=== PATIENT | male | born 1950 | race Caucasian/White ===

== ENCOUNTER 2019-11-10 07:47 | Day surgery (SDC) | payer OTHER ==
[~2019-11-10] VITALS: Ht 175.3 cm; Wt 110.9 kg
[~2019-11-10 07:47] MED LIST: ALLO100; ASPI81EC; BENAML10/2; CETI10 PO; HYDCHL25; MECL25 PO; MULVITA; NEBI5 PO; OMEP20ER PO; POTCHL10ER PO; Saw Palmetto80 MG; VICODIN 5-3001 EACH PO
[2019-11-10] MEDS ORDERED: AMLO5 PO (08:22)
[2019-11-10] MEDS ORDERED: DIAZ10 (08:24)
[2019-11-10] MEDS ORDERED: Hytrin2 MG PO (08:25)
--- NOTE | 2019-11-10 09:06 | NUR ---
11/10/19 0906 Randolph Purcell History, Chart, Medications and Allergies reviewed before start of procedure.MONITOR INTACT WITH CONTINUOUS PULSE OXIMETRY AND INTERMITTENT BP.3-LEAD EKG REVIEWED WITH PHYSICIAN PRIOR TO START OF PROCEDURE.O2 VIA N/C INTACT THROUGHOUT SEDATION/PROCEDURE. PATIENT DETERMINED TO BE ASA APPROPRIATE FOR PROPOFOL SEDATION PRIOR TO START OF PROCEDURE BY DR. ELLIS.
--- NOTE | 2019-11-10 09:15 | NUR ---
Ambulatory in Day SurgeryPatient states colon prep results clear. History, Chart, Medications and Allergies reviewed before start of procedure.Lungs clear T/O to Auscultation. Patient confirms NPO status and agrees with scheduled surgery. Patient states colon prep results clear. Pre-Op teaching done. Pt verbalizes understanding. Patient States Post-Procedure ride home has been arranged. PATIENT WAS SHOWING POSSIBLE A-FIB, AN EKG WAS ORDERED AND PREFORMED.
== END 2019-11-10 10:02 | disposition home or self-care (01) ==
LOC: ORSCMMR 07:47 → ORD 09:00 → ORSCMMR 10:02
PROVIDERS: Internal Medicine Gastroenterology
PROC: 0DJD8ZZ Inspection of Lower Intestinal Tract, Via Natural or Artificial Opening Endoscopic (ICD-10-PCS; principal; 2019-11-10 09:00)
DX: Z12.11 Encounter for screening for malignant neoplasm of colon (principal); Z86.010 Personal history of colon polyps; I10 Essential (primary) hypertension; K21.9 Gastro-esophageal reflux disease without esophagitis; E66.9 Obesity, unspecified; Z68.36 Body mass index [BMI] 36.0-36.9, adult; Z79.899 Other long term (current) drug therapy
CPT/HCPCS: 93005; 93010; J2704; J7120

== ENCOUNTER 2019-12-03 14:37 | Emergency (ER) | payer OTHER ==
[~2019-12-03] VITALS: Ht 177.8 cm; Wt 102.1 kg
[~2019-12-03 14:37] MED LIST changes: +AMLO5 PO; +DIAZ10; +Hytrin2 MG PO
[2019-12-03 15:38] LABS: BASOPHILS ABSOLUTE AUTO 0.04 K/mm3 (0.00-0.23); BASOPHILS PERCENT AUTO 0 % (0-2); EOSINOPHILS ABSOLUTE AUTO 0.15 K/mm3 (0.00-0.68); EOSINOPHILS PERCENT AUTO 2 % (0-6); Hematocrit 38.6 % (37.0-53.0); Hemoglobin 13.2 g/dL (13.5-17.5); IMMATURE GRAN ABSOLUTE AUTO 0.03 K/mm3 (0.00-0.10); IMMATURE GRAN PERCENT AUTO 0 % (0-1); LYMPHOCYTES ABSOLUTE AUTO 1.67 K/mm3 (0.84-5.20); LYMPHOCYTES PERCENT AUTO 17 % (21-46); MONOCYTES ABSOLUTE AUTO 0.98 K/mm3 (0.16-1.47); MONOCYTES PERCENT AUTO 10 % (4-13); Mean Corpuscular HGB Conc 34.2 g/dL (31.5-36.5); Mean Corpuscular Volume 100 fL (80-100); Mean Platelet Volume 9.3 fL (9.1-12.4); NEUTROPHILS ABSOLUTE AUTO 7.04 K/mm3 (1.96-9.15); NEUTROPHILS PERCENT AUTO 71 % (41-73); Platelet Count 298 K/mm3 (150-400); RDW Coefficient Variation 13.8 % (11.7-14.2); RDW Standard Deviation 49.7 fL (35.1-46.3); Red Blood Cell Count 3.88 M/mm3 (4.30-5.90); White Blood Cell Count 9.91 K/mm3 (4.00-11.30)
[2019-12-03 15:54] LABS: Alanine Aminotransfer (ALT/SGP 22 U/L (12-78); Albumin, Blood 3.4 g/dL (3.4-5.0); Alk Phos 72 U/L (50-136); Anion Gap 8 mmol/L (6-16); Aspartate Aminotrans (AST/SGOT 20 U/L (12-37); Bilirubin, Total 0.6 mg/dL (0.1-1.0); Blood Urea Nitrogen 7 mg/dL (8-24); Bun/Creatinine Ratio 7.2 (12.0-20.0); CO2, Blood 25 mmol/L (21-32); Calcium, Blood 8.6 mg/dL (8.5-10.1); Chloride, Blood 102 mmol/L (98-108); Creatinine, Blood 0.97 mg/dL (0.60-1.20); Globulin, Blood 3.4 g/dL (2.2-4.0); Glomerular Filtration Rate >60 (60-); Glucose, Blood 95 mg/dL (70-99); Potassium, Blood 4.3 mmol/L (3.5-5.5); Sodium, Blood 135 mmol/L (136-145); Total Protein, Blood 6.8 g/dL (6.4-8.2)
[2019-12-03 15:55] LABS: Troponin I <0.015 ng/mL (0.000-0.040)
[2019-12-03] MEDS ORDERED: Amlodipine Bes2.5 MG PO (16:29)
[2019-12-03] MEDS ORDERED: ALLO300 PO (16:29)
[2019-12-03] MEDS ORDERED: OMEP20ER PO (16:29)
[2019-12-03] MEDS ORDERED: DIAZ10 PO (16:30)
[2019-12-03] MEDS ORDERED: Depo-Testos200 MG/ML IM (16:30)
[2019-12-03] MEDS ORDERED: MULTIVITAMINS1 EAC3 PO (16:31)
[2019-12-03] MEDS ORDERED: Saw Palmetto450 MG PO (16:32)
[2019-12-03] MEDS ORDERED: Hytrin2 MG PO (16:32)
[2019-12-03] MEDS ORDERED: HYDR1TAB94 PO (16:32)
[2019-12-03] MEDS ORDERED: Azor 5-40 MG T1 EACH PO (16:33)
[2019-12-03] MEDS ORDERED: ELIQUIS2.5 MG PO (16:33)
[2019-12-03] MEDS ORDERED: Zithromax250 MG PO (17:08)
== END 2019-12-03 17:24 | disposition home or self-care (01) ==
LOC: ER 14:37
PROVIDERS: Physician Assistant
DX: J18.9 Pneumonia, unspecified organism (principal); I48.92 Unspecified atrial flutter; I10 Essential (primary) hypertension; K21.9 Gastro-esophageal reflux disease without esophagitis; Z79.899 Other long term (current) drug therapy
CPT/HCPCS: 36415; 71046; 80053; 83880; 84484; 85025; 93005; 93010; 99284-25

== ENCOUNTER 2019-12-21 10:03 | Day surgery (SDC) | payer OTHER ==
[~2019-12-21] VITALS: Ht 177.8 cm; Wt 109.0 kg
[~2019-12-21 10:03] MED LIST changes: +ALLO300 PO; +Amlodipine Bes2.5 MG PO; +Azor 5-40 MG T1 EACH PO; +DIAZ10 PO; +Depo-Testos200 MG/ML IM; +ELIQUIS2.5 MG PO; +HYDR1TAB94 PO; +MULTIVITAMINS1 EAC3 PO; +Saw Palmetto450 MG PO; +Zithromax250 MG PO
[2019-12-21 10:42] LABS: BASOPHILS ABSOLUTE AUTO 0.05 K/mm3 (0.00-0.23); BASOPHILS PERCENT AUTO 1 % (0-2); EOSINOPHILS ABSOLUTE AUTO 0.17 K/mm3 (0.00-0.68); EOSINOPHILS PERCENT AUTO 2 % (0-6); Hematocrit 40.3 % (37.0-53.0); Hemoglobin 13.9 g/dL (13.5-17.5); IMMATURE GRAN ABSOLUTE AUTO 0.02 K/mm3 (0.00-0.10); IMMATURE GRAN PERCENT AUTO 0 % (0-1); LYMPHOCYTES ABSOLUTE AUTO 1.67 K/mm3 (0.84-5.20); LYMPHOCYTES PERCENT AUTO 22 % (21-46); MONOCYTES ABSOLUTE AUTO 0.96 K/mm3 (0.16-1.47); MONOCYTES PERCENT AUTO 13 % (4-13); Mean Corpuscular HGB 32.9 pg (26.0-34.0); Mean Corpuscular HGB Conc 34.5 g/dL (31.5-36.5); Mean Platelet Volume 8.8 fL (9.1-12.4); NEUTROPHILS ABSOLUTE AUTO 4.77 K/mm3 (1.96-9.15); NEUTROPHILS PERCENT AUTO 62 % (41-73); Platelet Count 323 K/mm3 (150-400); RDW Coefficient Variation 12.8 % (11.7-14.2); RDW Standard Deviation 44.6 fL (35.1-46.3); Red Blood Cell Count 4.22 M/mm3 (4.30-5.90); White Blood Cell Count 7.64 K/mm3 (4.00-11.30)
[2019-12-21 10:47] LABS: Mean Corpuscular Volume 96 fL (80-100)
[2019-12-21 10:55] LABS: International Normalized Ratio 1.04; Prothrombin Time Results 11.1 Sec (9.7-11.5)
[2019-12-21 11:24] LABS: Anion Gap 6 mmol/L (6-16); Blood Urea Nitrogen 14 mg/dL (8-24); CO2, Blood 27 mmol/L (21-32); Calcium, Blood 8.5 mg/dL (8.5-10.1); Chloride, Blood 91 mmol/L (98-108); Glomerular Filtration Rate >60 (60-); Glucose, Blood 102 mg/dL (70-99); Sodium, Blood 124 mmol/L (136-145)
[2019-12-21] MEDS ORDERED: METO25ER PO (12:35)
--- NOTE | 2019-12-21 13:01 | NUR ---
DISCHARGE GONE OVER WITH PT AND WITH , BOTH VERBALIZE UNDERSTANDING. SALINE LOCK OUT WITH CATHETER INTACT. PT ALERT AND TALKING WITH STAFF UPON DISCHARGE. PT TO PRIVATE VEHICLE PER W/C WITH ASSIST OF 1 STAFF.
== END 2019-12-21 23:13 | disposition home or self-care (01) ==
LOC: MHTC 10:03
DX: I48.92 Unspecified atrial flutter (principal); I08.1 Rheumatic disorders of both mitral and tricuspid valves; M19.90 Unspecified osteoarthritis, unspecified site; Z79.899 Other long term (current) drug therapy; Z79.01 Long term (current) use of anticoagulants; Z91.030 Bee allergy status; Z88.8 Allergy status to other drugs, medicaments and biological substances
CPT/HCPCS: 36415; 80048; 85025; 85610; 92960; 93005; 93010; 93312; 93325; 99152; 99153; J2250; J2704; J3010; J7030

== ENCOUNTER 2020-01-23 02:23 | Emergency (ER) | payer OTHER ==
[~2020-01-23] VITALS: Ht 177.8 cm; Wt 113.4 kg
[~2020-01-23 02:23] MED LIST changes: +METO25ER PO
[2020-01-23 02:54] LABS: BASOPHILS ABSOLUTE AUTO 0.03 K/mm3 (0.00-0.23); BASOPHILS PERCENT AUTO 0 % (0-2); EOSINOPHILS ABSOLUTE AUTO 0.06 K/mm3 (0.00-0.68); EOSINOPHILS PERCENT AUTO 1 % (0-6); Hematocrit 34.9 % (37.0-53.0); Hemoglobin 11.7 g/dL (13.5-17.5); IMMATURE GRAN ABSOLUTE AUTO 0.07 K/mm3 (0.00-0.10); IMMATURE GRAN PERCENT AUTO 1 % (0-1); LYMPHOCYTES ABSOLUTE AUTO 1.35 K/mm3 (0.84-5.20); LYMPHOCYTES PERCENT AUTO 10 % (21-46); MONOCYTES ABSOLUTE AUTO 0.93 K/mm3 (0.16-1.47); MONOCYTES PERCENT AUTO 7 % (4-13); Mean Corpuscular HGB 32.4 pg (26.0-34.0); Mean Corpuscular HGB Conc 33.5 g/dL (31.5-36.5); Mean Corpuscular Volume 97 fL (80-100); Mean Platelet Volume 9.6 fL (9.1-12.4); NEUTROPHILS ABSOLUTE AUTO 10.49 K/mm3 (1.96-9.15); NEUTROPHILS PERCENT AUTO 81 % (41-73); Platelet Count 390 K/mm3 (150-400); RDW Standard Deviation 46.2 fL (35.1-46.3); Red Blood Cell Count 3.61 M/mm3 (4.30-5.90); White Blood Cell Count 12.93 K/mm3 (4.00-11.30)
[2020-01-23] MEDS ORDERED: ALBU90OI INH (02:54)
[2020-01-23] MEDS ORDERED: TORSE20 PO (02:54)
[2020-01-23] MEDS ORDERED: OLME20 PO (02:55)
[2020-01-23] MEDS ORDERED: POTCHL20ER PO (02:55)
[2020-01-23] MEDS ORDERED: TRAM50 PO (02:56)
[2020-01-23 03:14] LABS: Alanine Aminotransfer (ALT/SGP 63 U/L (12-78); Albumin, Blood 2.9 g/dL (3.4-5.0); Albumin/Globulin Ratio 0.7 (0.8-1.8); Alk Phos 135 U/L (50-136); Anion Gap 14 mmol/L (6-16); Aspartate Aminotrans (AST/SGOT 70 U/L (12-37); Bilirubin, Total 2.4 mg/dL (0.1-1.0); Blood Urea Nitrogen 35 mg/dL (8-24); Bun/Creatinine Ratio 11.6 (12.0-20.0); CO2, Blood 20 mmol/L (21-32); Calcium, Blood 9.2 mg/dL (8.5-10.1); Chloride, Blood 92 mmol/L (98-108); Creatinine, Blood 3.03 mg/dL (0.60-1.20); Globulin, Blood 4.4 g/dL (2.2-4.0); Glomerular Filtration Rate 22 (60-); Glucose, Blood 156 mg/dL (70-99); Potassium, Blood 4.7 mmol/L (3.5-5.5); Sodium, Blood 126 mmol/L (136-145); Total Protein, Blood 7.3 g/dL (6.4-8.2); Troponin I <0.015 ng/mL (0.000-0.040)
[2020-01-23 05:02] LABS: International Normalized Ratio 1.2; Prothrombin Time Results 12.7 Sec (9.7-11.5)
== END 2020-01-23 05:45 | disposition short-term general hospital (02) ==
LOC: ER 02:23
PROVIDERS: Emergency Medicine
DX: J90 Pleural effusion, not elsewhere classified (principal); I11.0 Hypertensive heart disease with heart failure; I50.9 Heart failure, unspecified; K21.9 Gastro-esophageal reflux disease without esophagitis; I48.92 Unspecified atrial flutter; N40.0 Benign prostatic hyperplasia without lower urinary tract symptoms; Z79.899 Other long term (current) drug therapy; Z79.01 Long term (current) use of anticoagulants
CPT/HCPCS: 36415; 71045; 71275; 80053; 83880; 84484; 85025; 85610; 85730; 86850; 86900; 86901; 86920; 93005; 93010; 96361-59; 96374-59; 99285-25; J0461; J2405; J7030; P9016; Q9967

== ENCOUNTER → 2020-06-04 | Outpatient (CLI) | payer OTHER ==
[~2020-06-04] MED LIST changes: +ALBU90OI INH; +OLME20 PO; +POTCHL20ER PO; +TORSE20 PO; +TRAM50 PO
== END | disposition home or self-care (01) ==
LOC: PLD 08:15 → LAB SHORT 08:15
DX: C43.61 Malignant melanoma of right upper limb, including shoulder (principal)
CPT/HCPCS: 88305

== ENCOUNTER → 2022-01-30 | Outpatient (CLI) | payer OTHER ==
[~2022-01-30] MED LIST changes: +WARF1 PO
== END | disposition home or self-care (01) ==
LOC: LAB SHORT 07:52 → LAB 07:52 → PLD 07:52
DX: B35.1 Tinea unguium (principal); L60.2 Onychogryphosis
CPT/HCPCS: 88305; 88312

== ENCOUNTER → 2022-07-04 | Outpatient (CLI) | payer OTHER ==
[~2022-07-04] MED LIST changes: +Bumetanide2 MG PO
[2022-07-04 09:36] LABS: BASOPHILS ABSOLUTE AUTO 0.04 K/mm3 (0.00-0.23); BASOPHILS PERCENT AUTO 0 % (0-2); EOSINOPHILS ABSOLUTE AUTO 0.11 K/mm3 (0.00-0.68); EOSINOPHILS PERCENT AUTO 1 % (0-6); Hematocrit 32.2 % (37.0-53.0); IMMATURE GRAN ABSOLUTE AUTO 0.02 K/mm3 (0.00-0.10); IMMATURE GRAN PERCENT AUTO 0 % (0-1); LYMPHOCYTES ABSOLUTE AUTO 1.47 K/mm3 (0.84-5.20); LYMPHOCYTES PERCENT AUTO 16 % (21-46); MONOCYTES ABSOLUTE AUTO 0.92 K/mm3 (0.16-1.47); MONOCYTES PERCENT AUTO 10 % (4-13); Mean Corpuscular HGB 35.3 pg (26.0-34.0); Mean Corpuscular HGB Conc 34.2 g/dL (31.5-36.5); Mean Corpuscular Volume 103 fL (80-100); Mean Platelet Volume 9.4 fL (9.1-12.4); NEUTROPHILS ABSOLUTE AUTO 6.46 K/mm3 (1.96-9.15); NEUTROPHILS PERCENT AUTO 72 % (41-73); Platelet Count 264 K/mm3 (150-400); RDW Coefficient Variation 13.3 % (11.7-14.2); RDW Standard Deviation 50.8 fL (35.1-46.3); RETICULOCYTE COUNT PERCENT 2.68 % (0.50-2.50); Red Blood Cell Count 3.12 M/mm3 (4.30-5.90); White Blood Cell Count 9.02 K/mm3 (4.00-11.30)
[2022-07-04 10:56] LABS: Albumin, Blood 3.3 g/dL (3.4-5.0); Bilirubin, Total 0.9 mg/dL (0.1-1.0); Bun/Creatinine Ratio 9.3 (12.0-20.0); Calcium, Blood 9.2 mg/dL (8.5-10.1); Creatinine, Blood 1.07 mg/dL (0.60-1.20); Globulin, Blood 3.3 g/dL (2.2-4.0); Potassium, Blood 3.8 mmol/L (3.5-5.5); Total Protein, Blood 6.6 g/dL (6.4-8.2)
== END ==
LOC: LAB SHORT 08:35
PROVIDERS: Family Medicine
DX: D53.9 Nutritional anemia, unspecified (principal)
CPT/HCPCS: 36415; 80053; 85025; 85045

== ENCOUNTER 2023-02-02 10:21 | Day surgery (SDC) | payer OTHER ==
[~2023-02-02] VITALS: Ht 175.3 cm; Wt 100.7 kg
[~2023-02-02 10:21] MED LIST changes: +AMLODIPINE-OLM1 EAC2 PO; +ASPI81CH PO; +ELIQUIS5 M2 PO; +SOAANZ20 M1 PO
[2023-02-02] MEDS ORDERED: ASPI81CH (10:41)
[2023-02-02 13:11] VITALS: BP 165/70
== END 2023-02-02 13:00 | disposition home or self-care (01) ==
LOC: ORSCSDS 10:21
PROVIDERS: Student in an Organized Health Care Education/Training Program
PROC: 0D758ZZ Dilation of Esophagus, Via Natural or Artificial Opening Endoscopic (ICD-10-PCS; principal; 2023-02-02 12:00)
PROC: 0DB58ZX Excision of Esophagus, Via Natural or Artificial Opening Endoscopic, Diagnostic (ICD-10-PCS; principal; 2023-02-02 12:00)
PROC: 0DB78ZX Excision of Stomach, Pylorus, Via Natural or Artificial Opening Endoscopic, Diagnostic (ICD-10-PCS; principal; 2023-02-02 12:00)
DX: R13.10 Dysphagia, unspecified (principal); K31.7 Polyp of stomach and duodenum; K29.70 Gastritis, unspecified, without bleeding; R23.4 Changes in skin texture; K21.00 Gastro-esophageal reflux disease with esophagitis, without bleeding; I10 Essential (primary) hypertension; G47.33 Obstructive sleep apnea (adult) (pediatric); I48.91 Unspecified atrial fibrillation; N40.0 Benign prostatic hyperplasia without lower urinary tract symptoms; Z79.01 Long term (current) use of anticoagulants; Z79.899 Other long term (current) drug therapy
CPT/HCPCS: 88305; 88312; 88342; C1726; J2001; J2405; J2704; J7120

== ENCOUNTER 2023-02-03 07:50 | Day surgery (SDC) | payer OTHER ==
[~2023-02-03] VITALS: Ht 172.7 cm; Wt 101.8 kg
[2023-02-03] VITALS (17 sets, daily range): BP systolic 115–174; BP diastolic 67–94
[~2023-02-03 07:50] MED LIST changes: +ASPI81CH
--- NOTE | 2023-02-03 09:15 | NUR ---
PATIENT NOTED TO HAVE BRADYCARDIA. DR ADLER NOTIFIED AND 12 LEAD EKG COMPLETED PER ORDER. PATIENT ADMITS TO SOB WITH ACTIVITY, BUT DENIES CHEST PAIN, DYAPHORESIS, NAUSEA, DIZZINESS OR OTHER SYMPTOMS WITH ACTIVITY. RESULTS SHARED WITH DR ADLER. PLAN TO PROCEED WITH ADMISSION PER DR ADLER.
--- NOTE | 2023-02-03 09:25 | NUR ---
UP TO BR TO VOID.
--- NOTE | 2023-02-03 10:11 | NUR ---
GLASSES AND BILAT HEARING AIDS LABLED AND BROUGHT TO PACU FOR SAFE KEEPING DURING SURGERY.
--- NOTE | 2023-02-03 12:45 | NUR ---
ARRIVAL PATIENT ARRIVED TO UNIT VIA BED. AQUACEL, YESENIA WRAP, AND POLAR PACK TO LEFT KNEE. PATIENT HAD SPINAL FOR SURGERY, DENIES PAIN AT THIS TIME. SENSATION TO L4-L5 AT THIS TIME. VSS ON RA. ORIENTED TO ROOM & CALL LIGHT, IN REACH.
--- NOTE | 2023-02-03 18:29 | NUR ---
SHIFT SUMMARY POD 0 L TKA. NO ACUTE CHANGES SINCE ARRIVAL TO UNIT. AQUACEL & YESENIA WRAP TO LEFT KNEE. POLAR PACK IN PALCE AT REST. PATIENT REPORTS MODERATE PAIN, MEDICATED PER EMAR AND REPORTS TO BE TOLERABLE. WORKED WITH PHYSICAL THERAPY, 1P MOD ASSIST, WILL HAVE ANOTHER SESSION IN AM. UP TO CHAIR FOR DINNER. EATING & DRINKING WELL. HAS YET TO VOID SINCE POST OP, PLAN TO BLADDER SCAN PER PROTOCOL. CALLS APPROPRIATELY, WILL REPORT TO ONCOMING RN AT 1900.
[2023-02-04 04:23] LABS: BASOPHILS ABSOLUTE AUTO 0.01 K/mm3 (0.00-0.23); BASOPHILS PERCENT AUTO 0 % (0-2); EOSINOPHILS PERCENT AUTO 0 % (0-6); Hematocrit 27.8 % (37.0-53.0); Hemoglobin 9.7 g/dL (13.5-17.5); IMMATURE GRAN ABSOLUTE AUTO 0.02 K/mm3 (0.00-0.10); IMMATURE GRAN PERCENT AUTO 0 % (0-1); LYMPHOCYTES ABSOLUTE AUTO 0.79 K/mm3 (0.84-5.20); LYMPHOCYTES PERCENT AUTO 8 % (21-46); MONOCYTES ABSOLUTE AUTO 0.72 K/mm3 (0.16-1.47); MONOCYTES PERCENT AUTO 8 % (4-13); Mean Corpuscular HGB 33.3 pg (26.0-34.0); Mean Corpuscular HGB Conc 34.9 g/dL (31.5-36.5); Mean Corpuscular Volume 96 fL (80-100); NEUTROPHILS ABSOLUTE AUTO 7.81 K/mm3 (1.96-9.15); NEUTROPHILS PERCENT AUTO 84 % (41-73); Platelet Count 164 K/mm3 (150-400); RDW Coefficient Variation 14.2 % (11.7-14.2); RDW Standard Deviation 49.6 fL (35.1-46.3); Red Blood Cell Count 2.91 M/mm3 (4.30-5.90); White Blood Cell Count 9.35 K/mm3 (4.00-11.30)
[2023-02-04 04:37] VITALS: BP 181/87
[2023-02-04 04:38] LABS: Bun/Creatinine Ratio 14.9 (12.0-20.0); Calcium, Blood 8.8 mg/dL (8.5-10.1); Creatinine, Blood 1.14 mg/dL (0.60-1.20); Potassium, Blood 4.6 mmol/L (3.5-5.5)
--- NOTE | 2023-02-04 04:43 | NUR ---
SHIFT SUMMARY POD1 LEFT TKA. DRESSING IS C/D/I. SENSATION AND CIRCULATION REMAINS INTACT. VSS, HTN NOTED THIS AM. PT REMAINS ASYMPTOMATIC, PLAN TO SPEAK WITH SURGEON WHEN HE ROUNDS. PT TAKES BASELINE BP MEDS, BUT THEY ARE BEING SUBBED PER PHARMACY. PT VOIDING W/O DIFFICULTY, ENCOURAGING PO INTAKE TO INCREASE URINE OUTPUT. AMBULATING WITH 1P FWW GT BELT. TOLLERATING PO INTAKE W/O N/V. PLAN FOR PT TO WORK WITH THERAPY AND D/C HOME TODAY. THE PATIENT IS CURRENTLY RESTING, IN NO DISTRESS, CALL LIGHT IN REACH
[2023-02-04 07:14] VITALS: BP 152/77
[2023-02-04] MEDS ORDERED: Percocet 5-3251 EACH PO (09:07)
[2023-02-04] MEDS ORDERED: ASPI81CH PO (09:07)
--- NOTE | 2023-02-04 10:30 | NUR ---
DISCHARGE NOTE: PATIENT WAS EDUCATED ON DISCHARGE INSTRUCTIONS. HE VERBALIZED UNDERSTANDING OF INSTRUCTIONS AND HAD NO FURTHER QUESTIONS AT THIS TIME. PAIN IS MANAGED WITH ORAL PAIN MEDICATIONS. HARD PERSCRIPTIONS ARE PLACED IN HIS INSTRUCTIONS FOLDER. HIS LEFT KNEE HAS AN AQUACEL THAT IS C/D/I. DENIES NUMBNESS AND TINGLING. CAN MOVE ALL EXTREMITIES WHEN ASKED. HE IS TOLERATING PO INTAKE AND IS VOIDING. HE IS A SBA WITH FWW AND GAIT BELT. HE IS AWAITING HIS RIDE TO COME AND PICK HIM UP TO TAKE HIM HOME.
--- NOTE | 2023-02-04 11:10 | NUR ---
PATIENTS ARRIVED JUST NOW. HE IS GETTING DRESSED AND GATHERING UP HIS PERSONAL ITEMS THEN HE WILL BE WHEELCHAIRED OUT TO WIFES CAR TO BE TAKEN HOME.
[2023-02-06] MEDS ORDERED: ONDA4ODT MM (16:42)
[2023-02-06] MEDS ORDERED: CEPH500 PO (16:42)
== END 2023-02-04 11:33 | disposition home or self-care (01) ==
LOC: ORSCMMR 07:50 → ORD 09:15 → SURS 13:01 → ORSCMMR 02-04 11:33
PROVIDERS: Orthopaedic Surgery
PROC: 8E0Y0CZ Robotic Assisted Procedure of Lower Extremity, Open Approach (ICD-10-PCS; principal; 2023-02-03 09:15)
PROC: 0SRD0JA Replacement of Left Knee Joint with Synthetic Substitute, Uncemented, Open Approach (ICD-10-PCS; principal; 2023-02-03 09:15)
DX: M17.12 Unilateral primary osteoarthritis, left knee (principal); I48.91 Unspecified atrial fibrillation; I10 Essential (primary) hypertension; I27.20 Pulmonary hypertension, unspecified; K21.9 Gastro-esophageal reflux disease without esophagitis; Z79.899 Other long term (current) drug therapy; Z79.82 Long term (current) use of aspirin
CPT/HCPCS: 27447; 20985; S2900; 36415; 73560-LT; 80048; 85025; 93005; 93010; 97110; 97116; 97161; 97530; A9270; C1776; J0171; J0690; J0735; J1100; J1170; J1885; J2250; J2405; J2704; J2795; J3010; J7120

== ENCOUNTER 2023-08-17 04:47 | Emergency (ER) | payer OTHER ==
[~2023-08-17] VITALS: Ht 177.8 cm; Wt 88.5 kg
[~2023-08-17 04:47] MED LIST changes: +CEPH500 PO; +ONDA4ODT MM; +Percocet 5-3251 EACH PO
[2023-08-17 06:11] LABS: BASOPHILS ABSOLUTE AUTO 0.05 K/mm3 (0.00-0.23); BASOPHILS PERCENT AUTO 1 % (0-2); EOSINOPHILS ABSOLUTE AUTO 0.18 K/mm3 (0.00-0.68); EOSINOPHILS PERCENT AUTO 2 % (0-6); Hematocrit 27.8 % (37.0-53.0); Hemoglobin 9.9 g/dL (13.5-17.5); IMMATURE GRAN ABSOLUTE AUTO 0.02 K/mm3 (0.00-0.10); IMMATURE GRAN PERCENT AUTO 0 % (0-1); LYMPHOCYTES ABSOLUTE AUTO 1.04 K/mm3 (0.84-5.20); LYMPHOCYTES PERCENT AUTO 13 % (21-46); MONOCYTES ABSOLUTE AUTO 0.75 K/mm3 (0.16-1.47); MONOCYTES PERCENT AUTO 10 % (4-13); Mean Corpuscular HGB 32.7 pg (26.0-34.0); Mean Corpuscular HGB Conc 35.6 g/dL (31.5-36.5); Mean Corpuscular Volume 92 fL (80-100); Mean Platelet Volume 10.1 fL (9.1-12.4); NEUTROPHILS ABSOLUTE AUTO 5.76 K/mm3 (1.96-9.15); NEUTROPHILS PERCENT AUTO 74 % (41-73); Platelet Count 211 K/mm3 (150-400); RDW Coefficient Variation 14.8 % (11.7-14.2); RDW Standard Deviation 50.4 fL (35.1-46.3); Red Blood Cell Count 3.03 M/mm3 (4.30-5.90)
[2023-08-17 06:27] LABS: Albumin, Blood 3.5 g/dL (3.4-5.0); Albumin/Globulin Ratio 0.9 (0.8-1.8); Bilirubin, Total 0.8 mg/dL (0.1-1.0); Bun/Creatinine Ratio 14.2 (12.0-20.0); Calcium, Blood 8.9 mg/dL (8.5-10.1); Creatinine, Blood 1.13 mg/dL (0.60-1.20); Globulin, Blood 3.8 g/dL (2.2-4.0); Potassium, Blood 3.9 mmol/L (3.5-5.5); Total Protein, Blood 7.3 g/dL (6.4-8.2)
[2023-08-17 07:27] LABS: Source, Urine Foley catheter
[2023-08-17 07:43] LABS: Bilirubin, Urine Neg (Neg); Blood, Urine 4+ (Neg); Glucose Qualitative, Urine Neg (Neg); Ketones, Urine Neg (Neg); Leukocyte Esterase, Urine 3+ (Neg); Nitrite, Urine Neg (Neg); Protein, Urine 2+ (Neg); Specific Gravity, Urine 1.015 (1.003-1.022); Urobilinogen, Urine NORM (Normal)
[2023-08-17 07:57] LABS: Appearance, Urine Hazy (Clear); Color, Urine Yellow (P-Yellow)
[2023-08-17 07:58] LABS: Bacteria Rare /hpf; Squamous Epithelial Cells Not Seen /hpf (Few); White Blood Cells, Urine 25-50 /hpf (0-5)
[2023-08-17] MEDS ORDERED: CEFP200 PO (08:27)
[2023-08-17] MEDS ORDERED: MECL25 PO (08:27)
[2023-08-17 08:59] VITALS: BP 128/56
== END 2023-08-17 09:05 | disposition home or self-care (01) ==
LOC: ER 04:47
PROVIDERS: Emergency Medicine; Student in an Organized Health Care Education/Training Program
DX: N40.1 Benign prostatic hyperplasia with lower urinary tract symptoms (principal); R33.8 Other retention of urine; N39.0 Urinary tract infection, site not specified; R42 Dizziness and giddiness; I48.92 Unspecified atrial flutter; I10 Essential (primary) hypertension; M10.9 Gout, unspecified; K21.9 Gastro-esophageal reflux disease without esophagitis; Z79.899 Other long term (current) drug therapy; Z79.82 Long term (current) use of aspirin
CPT/HCPCS: 51702; 51798; 80053; 81001; 84484; 85025; 87077; 87086; 87186; 93005; 93010; 99284-25

== ENCOUNTER 2023-08-20 15:42 | Emergency (ER) | payer OTHER ==
[~2023-08-20] VITALS: Ht 177.8 cm; Wt 87.5 kg
[~2023-08-20 15:42] MED LIST changes: +CEFP200 PO
[2023-08-20 21:27] VITALS: BP 122/55
== END 2023-08-20 21:28 | disposition home or self-care (01) ==
LOC: ER 15:42
DX: Z46.6 Encounter for fitting and adjustment of urinary device (principal); Z79.899 Other long term (current) drug therapy; Z79.82 Long term (current) use of aspirin; M10.9 Gout, unspecified; I48.92 Unspecified atrial flutter; I10 Essential (primary) hypertension; K21.9 Gastro-esophageal reflux disease without esophagitis; D64.9 Anemia, unspecified; I11.0 Hypertensive heart disease with heart failure; I50.9 Heart failure, unspecified; E87.1 Hypo-osmolality and hyponatremia; R63.4 Abnormal weight loss; R74.8 Abnormal levels of other serum enzymes; C67.2 Malignant neoplasm of lateral wall of bladder
CPT/HCPCS: 36415; 51798; 71046; 80053; 82977; 83880; 83930; 84443; 85025; 85060; 85651; 99282-25

== ENCOUNTER → 2023-08-24 | Outpatient (CLI) | payer OTHER ==
[2023-08-24 16:53] LABS: Sodium, Urine 9 mmol/L (20-110)
== END ==
LOC: LAB SHORT 15:43 → LAB 15:43
PROVIDERS: Physician Assistant
DX: E87.1 Hypo-osmolality and hyponatremia (principal)
CPT/HCPCS: 81050; 84300

== ENCOUNTER 2023-11-11 08:42 | Emergency (ER) | payer OTHER ==
[~2023-11-11] VITALS: Ht 177.8 cm; Wt 86.2 kg
[~2023-11-11 08:42] MED LIST changes: +EFUDEX40 GM TOP; +ERGO400 PO; +FOLI1 PO; +Vitamin B-12100 MCG; +ZINC
[2023-11-11 09:26] LABS: BASOPHILS ABSOLUTE AUTO 0.04 K/mm3 (0.00-0.23); BASOPHILS PERCENT AUTO 1 % (0-2); EOSINOPHILS PERCENT AUTO 4 % (0-6); Hematocrit 24.4 % (37.0-53.0); Hemoglobin 8.7 g/dL (13.5-17.5); IMMATURE GRAN ABSOLUTE AUTO 0.02 K/mm3 (0.00-0.10); IMMATURE GRAN PERCENT AUTO 0 % (0-1); LYMPHOCYTES ABSOLUTE AUTO 1.16 K/mm3 (0.84-5.20); LYMPHOCYTES PERCENT AUTO 25 % (21-46); MONOCYTES ABSOLUTE AUTO 0.49 K/mm3 (0.16-1.47); MONOCYTES PERCENT AUTO 11 % (4-13); Mean Corpuscular HGB Conc 35.7 g/dL (31.5-36.5); Mean Corpuscular Volume 92 fL (80-100); Mean Platelet Volume 9.4 fL (9.1-12.4); NEUTROPHILS ABSOLUTE AUTO 2.68 K/mm3 (1.96-9.15); NEUTROPHILS PERCENT AUTO 58 % (41-73); Platelet Count 183 K/mm3 (150-400); RDW Coefficient Variation 14.4 % (11.7-14.2); RDW Standard Deviation 48.8 fL (35.1-46.3); RETICULOCYTE ABSOLUTE 0.0282 M/mm3 (0.0200-0.1100); RETICULOCYTE COUNT PERCENT 1.07 % (0.50-2.50); Red Blood Cell Count 2.64 M/mm3 (4.30-5.90); White Blood Cell Count 4.59 K/mm3 (4.00-11.30)
[2023-11-11 09:59] LABS: Bun/Creatinine Ratio 13.3 (12.0-20.0); Creatinine, Blood 0.98 mg/dL (0.60-1.20); Potassium, Blood 3.9 mmol/L (3.5-5.5)
[2023-11-11] MEDS ORDERED: Furosemide 10 MG / ML 2ML Vial IV ONE (10:55)
[2023-11-11 11:40] LABS: Percent Saturation 28.8 % (20.0-50.0); Thyroid Stimulating Hormone 2.08 uIU/mL (0.360-4.800)
[2023-11-11 12:21] VITALS: BP 136/100
== END 2023-11-11 12:18 | disposition home or self-care (01) ==
LOC: ER 08:42
PROVIDERS: Emergency Medicine
DX: E87.1 Hypo-osmolality and hyponatremia (principal); D64.9 Anemia, unspecified; I10 Essential (primary) hypertension; M10.9 Gout, unspecified; N40.0 Benign prostatic hyperplasia without lower urinary tract symptoms; K21.9 Gastro-esophageal reflux disease without esophagitis; I48.92 Unspecified atrial flutter; Z79.82 Long term (current) use of aspirin; Z79.899 Other long term (current) drug therapy; Z88.8 Allergy status to other drugs, medicaments and biological substances; Z91.030 Bee allergy status
CPT/HCPCS: 80048; 82607; 82728; 82746; 83540; 83550; 83880; 83930; 84443; 85025; 85045; 96374; 99283-25; J1940

== ENCOUNTER 2024-02-02 05:57 | Day surgery (SDC) | payer OTHER ==
[~2024-02-02] VITALS: Ht 177.8 cm; Wt 86.3 kg
[~2024-02-02 05:57] MED LIST changes: +VITAMIN B12500 MCG PO; +VITAMIN D310 MC4 PO
[2024-02-02] MEDS ORDERED: NS 1,000 ML IV ONE ×2 (06:36→07:28)
[2024-02-02 06:50] VITALS: BP 145/74
[2024-02-02] MEDS ORDERED: Benzocaine Oral Spray 0.5ML UD ONE (06:50)
[2024-02-02 06:51] VITALS: BP 150/74
--- NOTE | 2024-02-02 07:34 | NUR ---
CORRIE AND R/L HRT CATH CANCELLED FOR NOW R/T NA+ 120. NS 500ML ORDER BY DR STARKS. NS STARTED TO RUN IN OVER 1 HR.
--- NOTE | 2024-02-02 09:24 | NUR ---
NS 500ML INFUSED. PT AND VERBALIZED UNDERSTANDING OF WRITTEN AND VERBAL D/C INST. BILAT AC IV'S REMOVED. PT AMB OUT OF THE DEPARTMENT /S DIFFICULTY.
== END 2024-02-02 22:50 | disposition home or self-care (01) ==
LOC: MHTC 05:57
DX: I48.0 Paroxysmal atrial fibrillation (principal); I34.0 Nonrheumatic mitral (valve) insufficiency; Z53.09 Procedure and treatment not carried out because of other contraindication
CPT/HCPCS: A9270; J7030

== ENCOUNTER 2025-02-14 10:41 | Observation (INO) | payer OTHER ==
[~2025-02-14] VITALS: Ht 177.8 cm; Wt 79.8 kg
[2025-02-16 15:17] VITALS: BP 136/55
== END 2025-02-16 15:51 | disposition home or self-care (01) ==
LOC: ER 10:41 → MEDS 14:21
PROVIDERS: ADMIT Family Medicine
DX: E87.1 Hypo-osmolality and hyponatremia (principal); I48.92 Unspecified atrial flutter; I10 Essential (primary) hypertension; N40.0 Benign prostatic hyperplasia without lower urinary tract symptoms; N39.0 Urinary tract infection, site not specified; C67.9 Malignant neoplasm of bladder, unspecified; F10.90 Alcohol use, unspecified, uncomplicated; K21.9 Gastro-esophageal reflux disease without esophagitis; M10.9 Gout, unspecified; Z79.82 Long term (current) use of aspirin; Z79.899 Other long term (current) drug therapy; Z91.030 Bee allergy status

== ENCOUNTER → 2025-09-06 | Outpatient (CLI) | payer OTHER ==
[~2025-09-06] MED LIST changes: +CLOP75 PO; +FINA5 PO; +Flomax0.4 MG PO; +MACRODANTIN PO; +SODCHL1 PO; +VISBIOME 112.51 EACH PO
== END ==
LOC: LAB 17:58 → LAB SHORT 17:58
DX: N39.0 Urinary tract infection, site not specified (principal)
CPT/HCPCS: 87086